=== PATIENT | male | born 1945 | race Caucasian/White ===

== ENCOUNTER 2022-03-12 11:48 | Emergency (ER) | payer MEDICARE, BC, SELFPAY ==
[2022-03-12 11:50] VITALS: BP 133/62; PULSE 66; RESP 16; TEMP 36.6; O2SAT 99; BMI 25.8
--- NOTE | 2022-03-12 12:28 | ED.GENADULT ---
HPI - General Adult General Date Seen: 03/12/22 Chief complaint: Skin/Abscess/Foreign Body Stated complaint: Swelling on head Time Seen by Provider: 03/12/22 11:50 Source: patient History of Present Illness HPI narrative: Patient is a 76-year-old male who presents for re-evaluation of cellulitis. He was seen a couple of days ago in urgent care having developed a red swollen area on his left upper forehead. He says it started as a relatively large painful red lump. It was not drained or anything at urgent care, he says that the lump just flattened out on its own. He was started on cefadroxil in Urgent Care and he has been taking that for the past couple of days. He says the area of redness on his forehead is improved although not completely gone. There is a little bit of scaliness and crusting over that area now that his is wondering if there is anything they should put on. He has not had any fevers. They came in today because when he woke up this morning he had swelling between his eyebrows and in his eyelid on the left. His left eye is also somewhat reddened. However, he does not have any pain in those areas and there is no redness of the eyelid or between his eyebrow. He says he does not really have any residual pain in the upper left scalp, it is mildly tender if he touches it but otherwise he does not have any pain. He does not have any specific history of MRSA. He has an appointment tomorrow morning to get his INR checked at clinic. He says he was told to follow up with his primary doctor this coming week, but they did not have any available appointments. Related Data Home Medications Medication Instructions Recorded Confirmed amlodipine 5 mg tablet 5 mg PO QDAY 03/09/22 03/12/22 atorvastatin 20 mg tablet 20 mg PO QPM 03/09/22 03/12/22 bupropion HCl 150 mg 24 hr tablet, 150 mg PO DAILY 03/09/22 03/12/22 extended release levothyroxine 25 mcg tablet 25 mcg PO QDAY 03/09/22 03/12/22 lisinopril 20 2 tab PO QDAY 03/09/22 03/12/22 mg-hydrochlorothiazide 12.5 mg tablet warfarin 4 mg tablet 4 mg PO 2XW 03/09/22 03/12/22 Previous Rx's Medication Instructions Recorded cefadroxil 500 mg capsule 500 mg PO BID 7 days #14 caps 03/09/22 mupirocin 2 % topical ointment 1 applic topical BID #15 grams 03/12/22 Allergies Allergy/AdvReac Type Severity Reaction Status Date / Time No Known Drug Allergies Allergy Verified 03/12/22 11:58 Review of Systems Status of ROS: Reports: 6 or more systems reviewed and unremarkable except as noted in History and below [facility] Social History Smoking Status: Former smoker Exam Narrative: Exam Narrative: Vital signs reviewed In general, an alert, well-appearing elderly male. Head: Normocephalic, atraumatic. On the left upper frontal scalp, there is the an oval shaped area of erythema without warmth. There is an area of slight scaling and crusting overlying this area. There is no drainage. There is no fluctuance over this area. It is nontender to palpation. Eyes: On the left there is some conjunctival edema and injection. Pupils are equal reactive. Extraocular movements are full. There is no ophthalmoplegia. There is edema of the left lid without erythema. ENT: There is a little bit of edema between the eyebrows without erythema or tenderness. No other facial edema or erythema. TMs are normal bilaterally. There is cerumen in the canal on the left but no impaction. Neck: Supple without adenopathy. Neurologic: He is alert, conversant, gait normal. Skin: Warm and dry. He has some scaling and erythema at the hairline consistent with seborrheic dermatitis. He has scaly patches on his hands which he says are chronic, they have never been fully diagnosed and he does not know whether they are seborrheic or related to psoriasis. Const: Vital Signs, click to edit/add: Vital Signs - 24 hr 03/12/22 11:50 Temperature 97.9 F Pulse Rate [Right Pulse Oximeter] 66 Respiratory Rate 16 Blood Pressure [Ri ght Upper Arm] 133/62 Pulse Oximetry 99 Oxygen Delivery Me thod Room Air Documenting provider has reviewed patient's vital signs: yes Course Course Hospital Course: It sounds as if originally he had an abscess on his forehead. This area is now flattened without any further fluctuance, it is not painful and really not significantly tender to palpation. He feels as if this is significantly improved. His primary concern was this new edema and his left eyelid and between his eyes, but to me this appears to be just some boggy edema, likely from gravity pulling the edema from his upper forehead down into his upper face. This does not appear to me to be a spreading cellulitis, he does not have any erythema or pain in these areas. We talked about MRSA and the possibility of this, but given that he is improving, I do not think he needs to be changed to a different antibiotic. I would suggest that we continue what he is on, and if he feels that he is worsening in any way, if he develops erythema or pain in these areas, he should be seen again right away. If he feels he is continuing to improve, I do not think he necessarily needs to follow up in clinic this week, but we discussed that if he has any concerns about his progress, that someone should take a look in the next day or 2, whether that is in clinic, or here in the ER if clinic does not have any availability. In terms of the little area of scaly/crustiness on the upper forehead, I will prescribe some mupirocin to use on that. Vital Signs Vital signs: Initial Vital Signs Temperature 97.9 F 03/12/22 11:50 Temperature Source Temporal Artery Scan 03/12/22 11:50 Pulse Rate 66 03/12/22 11:50 Respiratory Rate 16 03/12/22 11:50 Blood Pressure 133/62 03/12/22 11:50 Blood Pressure Mean 85 03/12/22 11:50 Blood Pressure Position Sitting 03/12/22 11:50 Pulse Oximetry 99 03/12/22 11:50 Oxygen Delivery Method 03/12/22 11:50 Vital Signs Temperature 97.9 F 03/12/22 11:50 Pulse Rate 66 03/12/22 11:50 Respiratory Rate 16 03/12/22 11:50 Blood Pressure 133/62 03/12/22 11:50 Pulse Oximetry 99 03/12/22 11:50 Oxygen Delivery Method 03/12/22 11:50 Temperature 97.9 F 03/12/22 11:50 Pulse Rate 66 03/12/22 11:50 Respiratory Rate 16 03/12/22 11:50 Blood Pressure 133/62 03/12/22 11:50 Pulse Oximetry 99 03/12/22 11:50 Oxygen Delivery Method 03/12/22 11:50 Discharge Plan Discharge Clinical Impression: Cellulitis Patient Disposition: Home, Self-Care Condition: Stable Instructions: Cellulitis (ED) Additional Instructions: Continue your antibiotic as prescribed. You can use the Bactroban on your forehead as discussed. If the swelling on your eyelid etc. changes and you note significant redness and or pain, you should be seen again right away. Otherwise, recheck with primary care clinic or ER if you have concerns about how you are doing in the next couple of days. If you feel that you are continuing to improve, you can follow-up for your INR tomorrow as planned. Prescriptions: New mupirocin 2 % ointment 1 applic topical BID Qty: 15 0RF No Action amlodipine 5 mg tablet 5 mg PO QDAY lisinopril-hydrochlorothiazide 20-12.5 mg tablet 2 tab PO QDAY Label Comments: TAKE 2 TABLETS BY MOUTH EVERY DAY levothyroxine 25 mcg tablet 25 mcg PO QDAY atorvastatin 20 mg tablet 20 mg PO QPM warfarin 4 mg tablet 4 mg PO 2XW Label Comments: 8mg 5 days a week bupropion HCl 150 mg tablet extended release 24 hr 150 mg PO DAILY Label Comments: TAKE 1 TABLET BY MOUTH EVERY DAY cefadroxil 500 mg capsule 500 mg PO BID 7 Days Qty: 14 0RF Follow Up/Referrals: Calixto Tsang MD [Primary Care Provider] - Stand Alone Forms: [employer] Info Instructions
== END 2022-03-12 12:52 | disposition home or self-care (01) ==
LOC: ED 12:49
PROVIDERS: Emergency Provider Emergency Medicine; PCP Family Medicine
DX: L03.811 Cellulitis of head [any part, except face] (principal)
CPT/HCPCS: 99283

== ENCOUNTER 2022-03-29 16:56 | Emergency (ER) | payer MEDICARE, BC, SELFPAY ==
[2022-03-29 17:47] VITALS: BP 150/75; PULSE 71; RESP 18; TEMP 35.9; O2SAT 97; BMI 26.6
[2022-03-29 18:05] VITALS: PULSE 79; O2SAT 93
[2022-03-29 18:30] VITALS: PULSE 76; O2SAT 89
[2022-03-29 18:33] VITALS: O2SAT 91
--- NOTE | 2022-03-29 18:36 | ED.GENADULT ---
HPI - General Adult General Chief complaint: Nausea/Vomiting Stated complaint: Vomiting Time Seen by Provider: 03/29/22 17:56 History of Present Illness HPI narrative: 76-year-old man presenting to the emergency department with his spouse with concern of repeated vomiting and weakness. History of atrial fibrillation anticoagulated with Coumadin. He notes a propensity to getting rather bloated if he eats too much and had a good size brunch today but did not feel it was excessive. After eating had gone to sit down and maybe read and with further questioning it reveals that he had looked down looked up and then everything was spinning ?whirling?. Subsequently started vomiting repeatedly. Became weak and was unable to stand. No diarrhea. No abdominal pain beyond sensation of fullness. No headache. I note dysconjugate gaze on exam apparently this is from Graves disease and he does generally have double vision. Otherwise is getting over a recent diagnosis of shingles. Tried 1 of 's Zofran but did seem to help. No fever. No cough or cold symptoms. Was apparently recently diagnosed with shingles involving the left head and face. Related Data Home Medications Medication Instructions Recorded Confirmed amlodipine 5 mg tablet 5 mg PO QDAY 03/09/22 03/12/22 atorvastatin 20 mg tablet 20 mg PO QPM 03/09/22 03/12/22 bupropion HCl 150 mg 24 hr tablet, 150 mg PO DAILY 03/09/22 03/12/22 extended release levothyroxine 25 mcg tablet 25 mcg PO QDAY 03/09/22 03/12/22 lisinopril 20 2 tab PO QDAY 03/09/22 03/12/22 mg-hydrochlorothiazide 12.5 mg tablet warfarin 4 mg tablet 4 mg PO 2XW 03/09/22 03/12/22 Previous Rx's Medication Instructions Recorded mupirocin 2 % topical ointment 1 applic topical BID #15 grams 03/12/22 Allergies Allergy/AdvReac Type Severity Reaction Status Date / Time No Known Drug Allergies Allergy Verified 03/12/22 11:58 Review of Systems Status of ROS: Reports: 10 or more systems reviewed and unremarkable except as noted in History and below PFSH PFS Social History Smoking Status: Former smoker Non-prescribed substance use: denies use Exam Narrative: Exam Narrative: Is pleasant. Speaking easily. Breathing easily. Head looks to be atraumatic. Does have some subtle erythematous spots with residual between the brows and then erythema in the corners of the mouth I would consider consistent with seborrhea. Cranial nerves 2-12 are intact though there is some dysconjugate gaze with the left eye little elevated turned medially when apparently is looking straight ahead. Extraocular movements otherwise are intact and full. He mild proptosis though with some drooping of the left lid a little bit. No nystagmus. Mild subjective dizziness with rotational head movement at this time. Cardiovascular regular rate but appears to be in an irregular rhythm. (also incidentally notes a history of resolved aortic aneurysm ?grew into it?) Lungs are clear Abdomen is soft and nontender. Moving all extremities without difficulty. Well-perfused. Const: Vital Signs, click to edit/add: Vital Signs - 24 hr 03/29/22 17:47 03/29/22 18:33 03/29/22 18:05 Temperature 96.7 F L Pulse Rate [Right Pulse Oximeter] 71 79 Respiratory Rate 18 Blood Pressure [Ri ght Upper Arm] 150/75 H Pulse Oximetry 97 91 93 Oxygen Delivery Me thod Room Air Room Air 03/29/22 18:30 03/29/22 19:00 03/29/22 20:00 Temperature Pulse Rate [Right Pulse Oximeter] 76 82 79 Respiratory Rate Blood Pressure [Ri ght Upper Arm] 116/63 Pulse Oximetry 89 89 93 Oxygen Delivery Me thod Room Air Room Air Room Air Documenting provider has reviewed patient's vital signs: yes Course Course Hospital Course: Labs are drawn. Initiated on IV fluids. Ordered for Valium and Zofran as well. Reevaluation(s) Reevaluation #1: Markedly improved. Says he feels ?pretty good?. Apparently up without notable difficulty to the bathroom. [place] a little weak little tired but no more dizzy. Feels he can return home. Time: 20:30 Vital Signs Vital signs: Initial Vital Signs Temperature 96.7 F L 03/29/22 17:47 Temperature Source Temporal Artery Scan 03/29/22 17:47 Pulse Rate 71 03/29/22 17:47 Respiratory Rate 18 03/29/22 17:47 Blood Pressure 150/75 H 03/29/22 17:47 Blood Pressure Mean 100 03/29/22 17:47 Blood Pressure Position Sitting 03/29/22 17:47 Pulse Oximetry 97 03/29/22 17:47 Oxygen Delivery Method 03/29/22 17:47 Vital Signs Temperature 96.7 F L 03/29/22 17:47 Pulse Rate 71 03/29/22 17:47 Respiratory Rate 18 03/29/22 17:47 Blood Pressure 150/75 H 03/29/22 17:47 Pulse Oximetry 97 03/29/22 17:47 Oxygen Delivery Method 03/29/22 17:47 Temperature 96.7 F L 03/29/22 17:47 Pulse Rate 79 03/29/22 20:00 Respiratory Rate 18 03/29/22 17:47 Blood Pressure 116/63 03/29/22 20:00 Pulse Oximetry 93 03/29/22 20:00 Oxygen Delivery Method 03/29/22 20:00 Medical Decision Making MDM Narrative Medical decision making narrative: Suspect peripheral vertiginous symptoms here. Careful questioning revealed that dizziness was brought on by particular movement and preceded the vomiting. Lab Data Lab results reviewed: Yes I reviewed the patient's lab results Labs: Lab Results 03/29/22 03/29/22 03/29/22 Range/Units 18:20 18:20 18:20 WBC 7.95 (4.50-11.00) K/uL RBC 4.85 (4.30-5.90) m/uL Hgb 14.4 (13.5-17.5) gm/dL Hct 44.3 (37.0-53.0) % MCV 91 (80-100) fL MCH 30 (26-34) pg MCHC 33 (32-36) gm/dL RDW Coeff of [place]eland 13.0 (11.5-15.5) % Plt Count 292 (140-440) K/uL Neut % (Auto) 79.0 H (42.0-72.0) % Lymph % (Auto) 11.7 L (20-44) % [place] % (Auto) 8.2 (0.0-11.0) % Eos % (Auto) 0.6 (0.0-7.0) % Baso % (Auto) 0.4 (0.0-3.0) % Neut # (Auto) 6.30 (1.7-7.0) K/uL Lymph # (Auto) 0.90 (0.90-2.90) K/uL [place] # (Auto) 0.70 (0.00-0.90) K/UL Eos # (Auto) 0.05 (0.00-0.50) K/uL Baso # (Auto) 0.03 (0.00-0.30) K/uL Abs Immat Gran (auto) 0.01 (0.00-0.30) K/uL Imm/Tot Granulo (auto) Not Reportable INR 1.65 H (0.91-1.10) Sodium 138 (135-149) mmol/L Potassium 4.2 (3.6-5.1) mmol/L Chloride 100 (96-114) mmol/L Carbon Dioxide 27 (20-32) mmol/L BUN 23 (7-30) mg/dL Creatinine 0.8 (0.5-1.5) mg/dL Estimated Creat Clear 60.88 Estimated GFR 91 ml/min Glucose 115 (60-115) mg/dL Calcium 9.3 (8.4-10.6) mg/dL Magnesium 2.3 (1.5-2.6) mg/dL Total Bilirubin (0.1-1.5) mg/dL Direct Bilirubin (0.0-0.5) mg/dL AST (12-35) U/L ALT (4-50) U/L Alkaline Phosphatase (40-150) U/L Troponin I (0.01-0.04) ng/mL C-Reactive Protein 0.7 (0.5-1.0) mg/dL NT-Pro-B Natriuret Pep 112 (0-450) PG/mL Total Protein (6.0-8.3) g/dL Albumin (3.3-5.0) g/dL 03/29/22 Range/Units 18:20 WBC (4.50-11.00) K/uL RBC (4.30-5.90) m/uL Hgb (13.5-17.5) gm/dL Hct (37.0-53.0) % MCV (80-100) fL MCH (26-34) pg MCHC (32-36) gm/dL RDW Coeff of [place] (11.5-15.5) % Plt Count (140-440) K/uL Neut % (Auto) (42.0-72.0) % Lymph % (Auto) (20-44) % [place] % (Auto) (0.0-11.0) % Eos % (Auto) (0.0-7.0) % Baso % (Auto) (0.0-3.0) % Neut # (Auto) (1.7-7.0) K/uL Lymph # (Auto) (0.90-2.90) K/uL [place] # (Auto) (0.00-0.90) K/UL Eos # (Auto) (0.00-0.50) K/uL Baso # (Auto) (0.00-0.30) K/uL Abs Immat Gran (auto) (0.00-0.30) K/uL Imm/Tot Granulo (auto) INR (0.91-1.10) Sodium (135-149) mmol/L Potassium (3.6-5.1) mmol/L Chloride (96-114) mmol/L Carbon Dioxide (20-32) mmol/L BUN (7-30) mg/dL Creatinine (0.5-1.5) mg/dL Estimated Creat Clear Estimated GFR ml/min Glucose (60-115) mg/dL Calcium (8.4-10.6) mg/dL Magnesium (1.5-2.6) mg/dL Total Bilirubin 0.9 (0.1-1.5) mg/dL Direct Bilirubin 0.1 (0.0-0.5) mg/dL AST 36 H (12-35) U/L ALT 24 (4-50) U/L Alkaline Phosphatase 80 (40-150) U/L Troponin I < 0.01 L (0.01-0.04) ng/mL C-Reactive Protein (0.5-1.0) mg/dL NT-Pro-B Natriuret Pep (0-450) PG/mL Total Protein 7.4 (6.0-8.3) g/dL Albumin 4.7 (3.3-5.0) g/dL ECG Data Attestation: I personally reviewed and interpreted this ECG as follows: (Looks to be in a sinus rhythm. Numerous PACs. Right bundle branch block. Rate of 79) Discharge Plan Discharge Clinical Impression: Benign paroxysmal positional vertigo Patient Disposition: Home w/ Parent or Adult Condition: Improved Additional Instructions: I am tempted to say leave well enough alone in this case. Stay well hydrated. Move slowly over the next couple of days. Take good care in transitions. Return as needed. Antivert also known as meclizine is available [id number] if you have some mild dizziness yet. Prescriptions: No Action amlodipine 5 mg tablet 5 mg PO QDAY lisinopril-hydrochlorothiazide 20-12.5 mg tablet 2 tab PO QDAY Label Comments: TAKE 2 TABLETS BY MOUTH EVERY DAY levothyroxine 25 mcg tablet 25 mcg PO QDAY atorvastatin 20 mg tablet 20 mg PO QPM warfarin 4 mg tablet 4 mg PO 2XW Label Comments: 8mg 5 days a week bupropion HCl 150 mg tablet extended release 24 hr 150 mg PO DAILY Label Comments: TAKE 1 TABLET BY MOUTH EVERY DAY mupirocin 2 % ointment 1 applic topical BID Qty: 15 0RF Follow Up/Referrals: Calixto Tsang MD [Primary Care Provider] - Stand Alone Forms: [employer] Info Instructions
[2022-03-29] MEDS: ONDANSETRON 2 MG/ML inj 4 MG IVP (18:51)
[2022-03-29] MEDS: diazePAM 5 MG/ML inj IV (18:51)
[2022-03-29 18:52] LABS: Albumin* 4.7 g/dL (3.3-5.0)
[2022-03-29] MEDS: 0.9 % SODIUM CHLORIDE 1000 ml 1,000 ML IV (18:52)
[2022-03-29 18:53] LABS: Basophils Absolute Auto 0.03 K/uL (0.00-0.30); Basophils Percent Auto 0.4 % (0.0-3.0); Chloride* 100 mmol/L (96-114); Eosinophils Absolute Auto 0.05 K/uL (0.00-0.50); Eosinophils Percent Auto 0.6 % (0.0-7.0); Hematocrit 44.3 % (37.0-53.0); Hemoglobin* 14.4 gm/dL (13.5-17.5); Immature Granulocytes Abs Auto 0.01 K/uL (0.00-0.30); Lymphocytes Percent Auto 11.7 % (20-44); Mean Corpuscular HGB Conc 33 gm/dL (32-36); Mean Corpuscular Hemoglobin 30 pg (26-34); Mean Corpuscular Volume 91 fL (80-100); Monocytes Percent Auto 8.2 % (0.0-11.0); Platelet Count* 292 K/uL (140-440); Potassium* 4.2 mmol/L (3.6-5.1); Red Blood Count 4.85 m/uL (4.30-5.90); Sodium* 138 mmol/L (135-149); White Blood Count* 7.95 K/uL (4.50-11.00)
[2022-03-29 18:55] LABS: Aspartate Amino Transferase* 36 U/L (12-35); Bilirubin Direct* 0.1 mg/dL (0.0-0.5); Bilirubin Total* 0.9 mg/dL (0.1-1.5); Total Protein* 7.4 g/dL (6.0-8.3)
[2022-03-29 18:56] LABS: Alanine Aminotransferase* 24 U/L (4-50); Alkaline Phosphatase* 80 U/L (40-150); Creatinine* 0.8 mg/dL (0.5-1.5); Est. Creatinine Clearance* 60.88; Estimated Glomerular Filt Rate 91 ml/min
[2022-03-29 18:57] LABS: Blood Urea Nitrogen* 23 mg/dL (7-30); Calcium* 9.3 mg/dL (8.4-10.6); Carbon Dioxide* 27 mmol/L (20-32); Glucose* 115 mg/dL (60-115); INR 1.65 (0.91-1.10); Magnesium* 2.3 mg/dL (1.5-2.6); Prothrombin Time 20.4 Seconds; Slide Review Reflex No
[2022-03-29 19:00] VITALS: PULSE 82; O2SAT 89
[2022-03-29 19:00] LABS: C Reactive Protein* 0.7 mg/dL (0.5-1.0)
[2022-03-29 19:05] LABS: NT Pro B Type NatriureticPept* 112 PG/mL (0-450)
[2022-03-29 19:08] LABS: Troponin I* < 0.01 ng/mL (0.01-0.04)
--- NOTE | 2022-03-29 19:11 | ED.NURSE ---
Pt states vertigo sensation is almost entirely resolved after med administration. MD notified.
[2022-03-29 20:00] VITALS: BP 116/63; PULSE 79; O2SAT 93
== END 2022-03-29 20:40 | disposition home or self-care (01) ==
PROVIDERS: Emergency Provider Family Medicine; PCP Family Medicine
DX: H81.10 Benign paroxysmal vertigo, unspecified ear (principal); I48.91 Unspecified atrial fibrillation; E05.00 Thyrotoxicosis with diffuse goiter without thyrotoxic crisis or storm; Z79.01 Long term (current) use of anticoagulants; Z79.899 Other long term (current) drug therapy; Z87.891 Personal history of nicotine dependence
CPT/HCPCS: 36415; 80048; 80076; 83735; 83880; 84484; 85025; 85610; 86140; 93005; 94761; 96361; 96374; 96375; 99284; J2405; J3360; J7030

== ENCOUNTER 2023-06-20 11:13 | Emergency (ER) | payer MEDICARE, BC, SELFPAY ==
[2023-06-20 11:20] VITALS: BP 161/75; PULSE 70; RESP 16; TEMP 36.4; O2SAT 98; BMI 25.8
--- NOTE | 2023-06-20 11:21 | CRLHL7_ITS ---
For Patients: As a result of the Century Cures Act, medical imaging exams and procedure reports are released immediately into your electronic medical record. You may view this report before your referring provider. If you have questions, please contact your health care provider. Indication: Fall on Coumadin Technique: Volumetric multidetector CT images of the head were obtained without the administration of low osmolar intravenous contrast. Comparison: None available Findings: There is no intra-axial or extra-axial fluid collection. There is no mass effect or midline shift. There is age-related cortical atrophy with mild sulcal widening and ex vacuo dilatation of the lateral ventricles. There are chronic small vessel disease changes in the subcortical and periventricular white matter without lost clifford-white differentiation. The orbits and their contents are grossly within normal limits. The bony calvarium is grossly intact. The paranasal sinuses are clear. The mastoid air cells are well aerated. Impression: 1. Age-related changes of the brain without acute intracranial abnormality. Please note that all CT scans at this facility use dose modulation, iterative reconstruction, and/or weight-based dosing when appropriate to reduce radiation dose to as low as reasonably achievable. Dictated by Joe Prater MD @ 06/20/2023 11:41:27 AM (Electronically Signed)
--- NOTE | 2023-06-20 11:29 | ED.GENADULT ---
HPI - General Adult General Chief complaint: Head Injury/Pain Stated complaint: Fell- hit head Time Seen by Provider: 06/20/23 11:20 History of Present Illness HPI narrative: Patient is a 77 year white male who fell on the ice and landed on the back of his buttock area and then hit the back of his head. He has got a slight abrasion on the back of his occipital parietal area. The center. He had no loss conscious, no neck pain, no neurologic complaints in his arms or legs. He did not feel nauseated. He presents to the ED as he is on Coumadin for AFib and was concerned that he could have a bleeding issue. He ambulates into the ER without difficulty. He has no arm or leg or chest or back symptoms. Related Data Home Medications Medication Instructions Recorded Confirmed amlodipine 5 mg tablet 5 mg PO QDAY 03/09/22 03/12/22 atorvastatin 20 mg tablet 20 mg PO QPM 03/09/22 03/12/22 bupropion HCl 150 mg 24 hr tablet, 150 mg PO DAILY 03/09/22 03/12/22 extended release levothyroxine 25 mcg tablet 25 mcg PO QDAY 03/09/22 03/12/22 lisinopril 20 2 tab PO QDAY 03/09/22 03/12/22 mg-hydrochlorothiazide 12.5 mg tablet warfarin 4 mg tablet 4 mg PO 2XW 03/09/22 03/12/22 Previous Rx's Medication Instructions Recorded mupirocin 2 % topical ointment 1 applic topical BID #15 grams 03/12/22 Allergies Allergy/AdvReac Type Severity Reaction Status Date / Time No Known Drug Allergies Allergy Verified 03/12/22 11:58 Review of Systems Status of ROS: Reports: 6 or more systems reviewed and unremarkable except as noted in History and below [facility] Social History Smoking Status: Former smoker Non-prescribed substance use: denies use Exam Narrative: Exam Narrative: Objective vital signs show slightly elevated blood pressure afebrile O2 sat excellent He is alert or x3 very pleasant man He has got an abrasion over the superior aspect of his scalp over the upper access PET. No obvious laceration just simply is a good abrasion. This will be cleansed and covered Rest of HEENT unremarkable neck nontender he reports his neck is always stiff but he has no midline tenderness he has normal range of motion. No neurologic complaints with movement of his neck. Normal strength in his arms and legs he is able to stand without difficulty. back examination shows no significant tenderness he has complained of some just below the belt line in the mid low back tenderness but there is no palpable step-off, no bruising or redness. He has normal strength in his legs as mention. Const: Vital Signs, click to edit/add: Vital Signs - 24 hr 06/20/23 11:20 Temperature 97.5 F L Pulse Rate [Pulse Oximeter] 70 Respiratory Rate 16 Blood Pressure [Ri t Upper Arm] 161/75 H Pulse Oximetry 98 Oxygen Delivery Me thod Room Air Course Vital Signs Vital signs: Initial Vital Signs Temperature 97.5 F L 06/20/23 11:20 Temperature Source Temporal Artery Scan 06/20/23 11:20 Pulse Rate 70 06/20/23 11:20 Pulse Rhythm Regular 06/20/23 11:20 Respiratory Rate 16 06/20/23 11:20 Blood Pressure 161/75 H 06/20/23 11:20 Blood Pressure Mean 103 06/20/23 11:20 Blood Pressure Position Sitting 06/20/23 11:20 Pulse Oximetry 98 06/20/23 11:20 Oxygen Delivery Method Room Air 06/20/23 11:20 Vital Signs Temperature 97.5 F L 06/20/23 11:20 Pulse Rate 70 06/20/23 11:20 Respiratory Rate 16 06/20/23 11:20 Blood Pressure 161/75 H 06/20/23 11:20 Pulse Oximetry 98 06/20/23 11:20 Oxygen Delivery Method Room Air 06/20/23 11:20 Temperature 97.5 F L 06/20/23 11:20 Pulse Rate 70 06/20/23 11:20 Respiratory Rate 16 06/20/23 11:20 Blood Pressure 161/75 H 06/20/23 11:20 Pulse Oximetry 98 06/20/23 11:20 Oxygen Delivery Method Room Air 06/20/23 11:20 Medications Administered Medications: Discontinued Medications Generic Name Dose Route Start Last Admin Trade Name Freq PRN Reason Stop Dose Admin Diphtheria/Tetanus/Acell Pertussis 0.5 ml 06/20/23 11:33 06/20/23 11:52 Tetanus/Diphth/Pertussis 0.5 Ml Syringe IM 06/20/23 11:34 0.5 ml .ONCE ONE Administration Medical Decision Making MDM Narrative Medical decision making narrative: [age] year white male on Coumadin for AFib also has hypertension high cholesterol, presents with a fall, on his low back and back of his head. He is moving well as low back has some minimal tenderness but I do not think requires imaging at this time given he is moving well and has no specific point tenderness. He also has an abrasion on the top of his head but I do think given that he fell he should have a CT of his head given he is on blood thinner his age. If his CT scan is negative I think he can go home rest light activity continue his same medications, his last INR was therapeutic. Will check it again today. Will also check his tetanus status. Lab Data Labs: Lab Results 06/20/23 Range/Units 11:43 INR 2.76 H (0.91-1.10) Discharge Plan Discharge Clinical Impression: Closed head injury Patient Disposition: Home w/ Parent or Adult Condition: Stable Additional Instructions: Light activity, Tylenol as needed, recheck her Coumadin level as planned. Return to ED problems concerns specifically vomiting, increasing headache, confusion or disorientation. Also would return for significant dizziness. Recommend he recheck with your regular doctor within the next week. You may cover the wound on your scalp with bacitracin and a bandage Activity Level: Light activity Discharge Diet: Regular Prescriptions: No Action amlodipine 5 mg tablet 5 mg PO QDAY lisinopril-hydrochlorothiazide 20-12.5 mg tablet 2 tab PO QDAY Patient Comments: TAKE 2 TABLETS BY MOUTH EVERY DAY levothyroxine 25 mcg tablet 25 mcg PO QDAY atorvastatin 20 mg tablet 20 mg PO QPM warfarin 4 mg tablet 4 mg PO 2XW Patient Comments: 8mg 5 days a week bupropion HCl 150 mg tablet extended release 24 hr 150 mg PO DAILY Patient Comments: TAKE 1 TABLET BY MOUTH EVERY DAY mupirocin 2 % ointment 1 applic topical BID Qty: 15 0RF Follow Up/Referrals: Calixto Tsang MD [Primary Care Provider] - Stand Alone Forms: [facility] Info Instructions
--- NOTE | 2023-06-20 11:36 | ED.NURSE ---
Patient's last TDap 05/13/2013 according to [facility].
[2023-06-20] MEDS: TETANUS/DIPHTH/PERTUSSIS 0.5 ML SYRINGE IM (11:52)
--- NOTE | 2023-06-20 11:54 | ED.NURSE ---
Patient's abrasion to back of head cleansed, bacitracin applied, telfa secured with paper tape for coverage of area.
[2023-06-20 12:04] LABS: INR 2.76 (0.91-1.10); Prothrombin Time 31.3 Seconds
== END 2023-06-20 12:32 | disposition home or self-care (01) ==
LOC: ED 12:01
PROVIDERS: Emergency Provider Family Medicine; PCP Family Medicine
DX: S09.90XA Unspecified injury of head, initial encounter (principal); W00.0XXA Fall on same level due to ice and snow, initial encounter
CPT/HCPCS: 36415; 70450; 85610; 90471; 90715; 99283; 99284

== ENCOUNTER 2024-01-17 13:45 | Outpatient (RCR) | payer MEDICARE, BC, SELFPAY ==
--- NOTE | 2023-12-12 17:25 | PT.OPEX ---
PT [facility] Eval PT [facility] Outpatient Eval Start: 12/12/23 11:57 Freq: Status: Active Protocol: Document 12/12/23 11:57 [place] (Rec: 12/12/23 17:25 [facility] [id number]) E-signed By Radha Bacon PT Physical Therapy Outpatient Evaluation Insurance Information Recert Due Date 12/12/23 Insurance Name Medicare B Medical Diagnosis MECHANICAL LOW BACK PAIN M54.9 Treating Diagnosis BACK PAIN Referring MD DR. COOPER Subjective Subjective FELIPE REPORTS THAT SUNDAY, WHEN HE TYLER FROM BED, WITHIN ABOUT 2-3 STEPS HE FELT A SIGNIFICANT AMOUNT OF PAIN ABOUT THE RIGHT POSTERIOR HIP. HE STATES, I'VE HAD KIM FALLS OVER THE YEARS LANDING ON MY BACKSIDE BUT I NEVER HAD THIS TIP OF PAIN. HE FURTHER REPORTS RIGHT>LEFT ANTERIOR TIB FATIGUE/DISCOMFORT FOLLOWING THE INITIATION OF THE RIGHT POSTERIOR HIP PAIN. 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 HE HAS GIVEN UP GOLF A WHILE BACK D/T HIS BACK AND IS IT IS NOW AFFECTING EVERYDAY MOBILITY. HIS PATIENT CENTERED GOAL IS TO MANAGE HIS SYMPTOMS AND BE ABLE TO WALK COMMUNITY DISTANCES W/HIS W/O PAIN. [age] year white male on Coumadin for AFib also has hypertension high cholesterol, presents with a fall, on his low back and back of his head. 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 Precautions Treatment Precautions/Contraindications ANTICOAGULATION PRECAUTIONS, AFIB, HTN, HLD, HYPOTHYROIDISM , [place] W/HEARING AIDES Therapy Limitations/Systems Review Hearing Objective Other/Pertinent Objective Posture Assessment: SLIGHT FWD TRUNK POSTURING, ABSENT LORDOITC CURAVATURE LUMBAR ROM Flexion: repeated flexion: UNREMARKABLE Extension: ABSENT LORDOTIC MVMT repeated ext: UNREMARKABLE Right Sidebend: Left Sidebend: LE MMT Hip flexion: R /5 L /5 Hip Extension: R /5 L /5 Hip abduction: R /5 L /5 knee extension: R /5 L /5 Knee Flexion: R /5 L /5 Dorsiflexion/heel walk: R /5 L /5 Plantarflexion/toe walk:R /5 L /5 Great Toe Extension: R /5 L /5 JOINT MOBILITY/PALPATION SPECIAL TESTS Straight leg raise: Crossed straight leg raise: Slump test: Quadrant test: SI/HIPI tests FRANCIE DIAZ [place] Test: Standing forward bend Test: Gapping and Compression test: TX: Assessment Assessment/Impression PATIENT IS A [address] COOPER TO EVAL AND TX MECHANICAL LOW BACK PAIN. HE REPORTS WAKING LAST SUNDAY TO RIGHT HIP/SI PAIN WITHIN SEVERAL STEPS OF WALKING. CONCURRENTLY HE C/O RIGHT>LEFT TIBIALIS ANTERIOR PAIN. HE DEMONSTRATES POOR FLEXIBILITY NOTING BILATERAL HIP ROTATION STIFFNESS R>LEFT, HIP FLEX STIFFNESS R>L AND POSTERIOR PELVIC TILT ELIMINATING LUMBAR LORDOSIS. HE DEMONSTRATES MODERATE FACET HYPOMOBILITY WELL SEGMENTALLY AND TTP RIGHT>LEFT SIJ, LEFT>RIGHT L4, L5 FACET. HE HAS BEEN TOLD IN THE PAST THAT HE HAS STENOSIS AND HAS LOST 2 IN HEIGHT. HE HAS NORMAL REFLEXES WELL 5/5 STRENGTH BLE BUT 4 /5 GLUT STRENGTH. HE WOULD BENEFIT FROM SKILLED PHYSICAL THERAPY TO ADDRESS LUMBOPELVIC /HIP FLEXIBILITY, SEGMENTAL MOBILITY, CORE STRENGTHENING, AND POSTURAL / BACK CARE EDUCATION. PATIENT VERBALIZED UNDERSTANDING OF ALL SKILLED INSTRUCTION AND AGREEABLE TO POC AND FREQ. Primary Functional Limitations STDG>3-4 MIN HOUSEHOLD AMB W/O PAIN COMMUNITY AMB TRANSITIONAL MVMTS Plan of Care Rehabilitation Potential Good Physical Therapy Goals STG (4-6 WEEKS): 1. PATIENT WILL REPORT PAIN </ 3/10 DURING DAILY ACTIVITIES AND WITH DAILY PARTICIPATION WITH HIS HEP 2. PATIENT WILL REPORT THE ABILITY TO STAND >10 MIN TO ENABLE COOKING, GROOMING, AND OTHER IADL'S 3. PATIENT WILL VERBALIZE A GOOD UNDERSTANDING OF BODY MECHANICS DURING HIS DAILY ACTIVITIES ALONG WITH PROPER LIFTING TECHNIQUES FOR GOOD BACK CARE AND WITH SYMPTOM MGMT. LTG (8 WEEKS): 1. PATIENT WILL IMPROVE NOT ONLY FLEXIBILITY BUT BOTH CORE STRENGTH AND STABILITY TO IMPROVE POSTURING DURING DAILY ACTIVITIES INCLUDING IADL'S AND PEER CENTERED ACTIVITIES. 2. PATIENT WILL VERBALIZE GOOD UNDERSTANDING OF CORE STABILITY TO MAINTAIN AND FURTHER PROGRESS HIS FUNCTIONAL MOBILITY AND TOLERANCE TO PROLONGED POSITIONING. 3. PATIENT WILL DEMONSTRATE COMPLETE INDEPENDENCE AND THE ABILITY TO PROGRESS HIS HEP FOR MAINTENANCE AND CONTINUED IMPROVEMENT OF HIS CORE / BLE STRENGTH AND STABILITY. Coordination/Communication With Referral Source Treatment Plan/Direct Interventions Electrical Stimulation,Gait Training,Ice/Cold/ Vasopneumatic,Joint Mobilization,Manual Therapy, Neuromuscular Re-ed,Self-Care/ Home Management,Therapeutic Activities,Therapeutic Exercises Frequency/Duration 1X Patient Will Be Discharged From Therapy Completion of LTG(s), Independent w/HEP Evaluation Billing Untimed Code Treatment Minutes 20 PT Eval No Charge No Complexity Moderate Certification Information Initial Certification Date 12/12/23 Ending Certification Date 03/10/24 Provider Signature Required Yes Provider Signature Shows Agreement With POC & Medical Necessity Physician NPI Number Write NPI# Here Physician Comment/Change : Physician Signature & Date Requested Please Sign/Date Here
== END 2024-02-06 09:18 | disposition home or self-care (01) ==
PROVIDERS: PCP Family Medicine; Visit Provider Family Medicine
DX: M54.9 Dorsalgia, unspecified (principal); Z51.89 Encounter for other specified aftercare
CPT/HCPCS: 97110; 97140; 97162

== ENCOUNTER 2024-02-17 17:29 | Emergency (ER) | payer MEDICARE, BC, SELFPAY ==
[2024-02-17] VITALS (10 sets, daily range): BP systolic 120–138; BP diastolic 61–88; PULSE 76–82; RESP 18; TEMP 37.5–38.3; O2SAT 93–95; BMI 25.1
--- NOTE | 2024-02-17 17:46 | ED.GENADULT ---
HPI - General Adult General Chief complaint: Fever Stated complaint: vomiting, fever Time Seen by Provider: 02/17/24 17:46 History of Present Illness HPI narrative: coughing that started yesterday. now running fevers . 78 year old man presenting to the emergency department concern of cough and fever. Did start yesterday. Has measured a fever then today. Temperature of 101? on arrival here. No chest pain. Not really short of breath. No rashes. No vomiting or diarrhea. Some aches. Related Data Home Medications ?Medication ?Instructions ?Recorded ?Confirmed amlodipine 5 mg tablet 5 mg PO QDAY 03/09/22 02/17/24 atorvastatin 20 mg tablet 20 mg PO QPM 03/09/22 02/17/24 bupropion HCl 150 mg 24 hr tablet, 150 mg PO DAILY 03/09/22 02/17/24 extended release levothyroxine 25 mcg tablet 25 mcg PO QDAY 03/09/22 02/17/24 lisinopril 20 2 tab PO QDAY 03/09/22 02/17/24 mg-hydrochlorothiazide 12.5 mg tablet warfarin 4 mg tablet 4 mg PO 2XW 03/09/22 02/17/24 Previous Rx's ?Medication ?Instructions ?Recorded mupirocin 2 % topical ointment 1 applic topical BID #15 grams 03/12/22 nirmatrelvir 300 mg (150 mg See Rx Instructions PO .COMPLEX #6 02/17/24 x2)-ritonavir 100 mg tablet,dose tabs pack (Paxlovid) Allergies Allergy/AdvReac Type Severity Reaction Status Date / Time No Known Drug Allergies Allergy Verified 03/12/22 11:58 Review of Systems Status of ROS: Reports: 6 or more systems reviewed and unremarkable except as noted in History and below [facility] Social History Smoking Status: Former smoker Do you use any of these nicotine containing products: None Second hand tobacco smoke exposure: No How often do you have a drink containing alcohol: monthly or less How often do you have six or more drinks on one occasion: Never AUDIT-C Alcohol total score: 1 Non-prescribed substance use: denies use service: No Exam Narrative: Exam Narrative: Pleasant. NAD. Seems a little uncomfortable. Distracted. Spouse answers many questions. He defers. Lungs appear clear other than some trace clearing basilar crepitus. Equal expansion the chest. Oropharynx is unremarkable other than a little sticky. Heart actually appears to be in a regular rhythm with some ectopic beats. Abdomen is soft nontender. Extremities are well perfused. No edema. Skin is rather warm. Dry. Const: Vital Signs, click to edit/add: Vital Signs - 24 hr 02/17/24 17:36 Temperature 101.0 F H Pulse Rate [Right Pulse Oximeter] 82 Respiratory Rate 18 Blood Pressure [Ri ght Upper Arm] 134/61 Pulse Oximetry 94 Oxygen Delivery Me thod Room Air Documenting provider has reviewed patient's vital signs: yes Course Vital Signs Vital signs: Initial Vital Signs Temperature 101.0 F H 02/17/24 17:36 Temperature Source Temporal Artery Scan 02/17/24 17:36 Pulse Rate 82 02/17/24 17:36 Respiratory Rate 18 02/17/24 17:36 Blood Pressure 134/61 02/17/24 17:36 Blood Pressure Mean 85 02/17/24 17:36 Blood Pressure Position Sitting 02/17/24 17:36 Pulse Oximetry 94 02/17/24 17:36 Oxygen Delivery Method Room Air 02/17/24 17:36 Vital Signs Temperature 101.0 F H 02/17/24 17:36 Pulse Rate 82 02/17/24 17:36 Respiratory Rate 18 02/17/24 17:36 Blood Pressure 134/61 02/17/24 17:36 Pulse Oximetry 94 02/17/24 17:36 Oxygen Delivery Method Room Air 02/17/24 17:36 Temperature 99.5 F 02/17/24 19:36 Pulse Rate 82 02/17/24 19:32 Respiratory Rate 18 02/17/24 17:36 Blood Pressure 127/88 02/17/24 19:31 Pulse Oximetry 94 02/17/24 19:32 Oxygen Delivery Method Room Air 02/17/24 17:36 Medications Administered Medications: Discontinued Medications Generic Name Dose Route Start Last Admin Trade Name Freq PRN Reason Stop Dose Admin Acetaminophen 650 mg 02/17/24 18:10 02/17/24 18:50 Acetaminophen 325 Mg Tablet PO 02/17/24 18:11 650 mg ONCE ONE Administration Sodium Chloride 1,000 mls @ 1,000 mls/hr 02/17/24 17:57 02/17/24 18:40 0.9 % Sodium Chloride 1000 Ml IV 02/17/24 18:56 1,000 mls/hr .Q1H ONE Administration Medical Decision Making MDM Narrative Medical decision making narrative: Differential includes pneumonia, COVID in particular considering community prevalence, nonspecific URI, secondary urinary tract infection. Will look for correlating and red flags in labs. I think would benefit from IV hydration Chest x-ray reviewed by me does not show clear infiltrate. Basilar atelectasis? Radiology over-read below INDICATION: Cough and fever. COMPARISON: 05/25/2021 chest radiographs. FINDINGS/IMPRESSION: Chest, two views. Improvement in previously seen left basilar atelectasis or consolidation. Stable stranding at the right lung base and blunting of the right costophrenic angle favored to represent chronic atelectasis or scarring. No definite acute pulmonary consolidation. Unchanged upper normal heart size. Postoperative changes in the right humeral head, as before. No acute osseous findings. Labs are reassuring. Though COVID positive and I suppose correspondingly elevated CRP. Given acetaminophen and fever resolves. Would be candidate for Paxlovid More more energetic and responsive to questions later. Does report feeling improved after time of observation emergency department and IV hydration. See patient discharge plan for further discussion Medical Records Medical records reviewed: Yes I reviewed the patient's medical records Lab Data Lab results reviewed: Yes I reviewed the patient's lab results Labs: Lab Results 02/17/24 Range/Units 18:16 WBC 7.79 (4.50-11.00) K/uL RBC 4.25 L (4.30-5.90) m/uL Hgb 12.5 L (13.5-17.5) gm/dL Hct 38.9 (37.0-53.0) % MCV 92 (80-100) fL MCH 29 (26-34) pg MCHC 32 (32-36) gm/dL RDW Coeff of [place] 13.3 (11.5-15.5) % Plt Count 199 (140-440) K/uL Neut % (Auto) 76.6 H (42.0-72.0) % Lymph % (Auto) 8.5 L (20-44) % [place] % (Auto) 14.4 H (0.0-11.0) % Eos % (Auto) 0.1 (0.0-7.0) % Baso % (Auto) 0.1 (0.0-3.0) % Neut # (Auto) 6.00 (1.7-7.0) K/uL Lymph # (Auto) 0.70 L (0.90-2.90) K/uL [place] # (Auto) 1.10 H (0.00-0.90) K/UL Eos # (Auto) 0.01 (0.00-0.50) K/uL Baso # (Auto) 0.01 (0.00-0.30) K/uL Abs Immat Gran (auto) 0.02 (0.00-0.30) K/uL Imm/Tot Granulo (auto) 0.3 % INR 2.01 H (0.91-1.10) Sodium 134 L (135-149) mmol/L Potassium 3.7 (3.6-5.1) mmol/L Chloride 99 (96-114) mmol/L Carbon Dioxide 26 (20-32) mmol/L Anion Gap 9 (7-15) mEq/L BUN 19 (7-30) mg/dL Creatinine 1.0 (0.5-1.5) mg/dL Estimated Creat Clear 60.83 Estimated GFR 76 ml/min Glucose 106 (60-115) mg/dL Calcium 8.6 (8.4-10.6) mg/dL C-Reactive Protein 5.8 H (0.5-1.0) mg/dL SARS-CoV-2 (PCR) POSITIVE SARS-CoV-2 A (Negative) Influenza Type A (PCR) Negative PCR FLU A (Negative) Influenza Type B (PCR) Negative PCR FLU B (Negative) RSV (PCR) Negative PCR RSV (Negative) Discharge Plan Discharge Clinical Impression: COVID Patient Disposition: Home w/ Parent or Adult Condition: Improved Additional Instructions: Stay well-hydrated. Be seen for marked weakness, intractable vomiting or diarrhea, persistent and increasing shortness of breath. Regarding medication -- While taking Paxlovid, should take half daily dosing of amlodipine or take amlodipine every other day. Resume usual dosing 3 days after done with Paxlovid Hold atorvastatin until 3 days after done with Paxlovid Check INR maybe a 5 days to a week after done with Paxlovid course Recommended to quarantine 10 days from 1st day of symptoms. Prescriptions: New Paxlovid 300 mg (150 mg x 2)-100 mg tablets,dose pack See Rx Instructions PO .COMPLEX Qty: 6 0RF Rx Instructions: take TWO 150 mg tablets of nirmatrelvir with ONE 100 mg tablet of ritonavir twice daily for 5 days No Action amlodipine 5 mg tablet 5 mg PO QDAY lisinopril-hydrochlorothiazide 20-12.5 mg tablet 2 tab PO QDAY Patient Comments: TAKE 2 TABLETS BY MOUTH EVERY DAY levothyroxine 25 mcg tablet 25 mcg PO QDAY atorvastatin 20 mg tablet 20 mg PO QPM warfarin 4 mg tablet 4 mg PO 2XW Patient Comments: 8mg 5 days a week bupropion HCl 150 mg tablet extended release 24 hr 150 mg PO DAILY Patient Comments: TAKE 1 TABLET BY MOUTH EVERY DAY mupirocin 2 % ointment 1 applic topical BID Qty: 15 0RF Follow Up/Referrals: Calixto Tsang MD [Primary Care Provider] - Stand Alone Forms: [facility] Info Instructions
--- NOTE | 2024-02-17 17:57 | CRLHL7_ITS ---
For Patients: As a result of the Cures Act, medical imaging exams and procedure reports are released immediately into your electronic medical record. You may view this report before your referring provider. If you have questions, please contact your health care provider. INDICATION: Cough and fever. COMPARISON: 05/25/2021 chest radiographs. FINDINGS/IMPRESSION: Chest, two views. Improvement in previously seen left basilar atelectasis or consolidation. Stable stranding at the right lung base and blunting of the right costophrenic angle favored to represent chronic atelectasis or scarring. No definite acute pulmonary consolidation. Unchanged upper normal heart size. Postoperative changes in the right humeral head, as before. No acute osseous findings. Dictated by Franklyn Rizo MD @ 02/17/2024 7:21:05 PM Dictated by: Franklyn Rizo MD @ 02/17/2024 19:21:30 (Electronically Signed)
[2024-02-17 18:25] LABS: Basophils Absolute Auto 0.01 K/uL (0.00-0.30); Basophils Percent Auto 0.1 % (0.0-3.0); Eosinophils Absolute Auto 0.01 K/uL (0.00-0.50); Eosinophils Percent Auto 0.1 % (0.0-7.0); Hematocrit* 38.9 % (37.0-53.0); Hemoglobin* 12.5 gm/dL (13.5-17.5); Immature Granulocytes Abs Auto 0.02 K/uL (0.00-0.30); Immature Granulocytes Pct Auto 0.3 %; Lymphocytes Percent Auto 8.5 % (20-44); Mean Corpuscular HGB Conc 32 gm/dL (32-36); Mean Corpuscular Hemoglobin 29 pg (26-34); Mean Corpuscular Volume 92 fL (80-100); Monocytes Percent Auto 14.4 % (0.0-11.0); Neutrophils Percent Auto 76.6 % (42.0-72.0); Platelet Count* 199 K/uL (140-440); RDW Coefficient of Variation % 13.3 % (11.5-15.5); Red Blood Count* 4.25 m/uL (4.30-5.90); White Blood Count* 7.79 K/uL (4.50-11.00)
[2024-02-17 18:28] LABS: Slide Review Reflex No
[2024-02-17 18:37] LABS: Chloride* 99 mmol/L (96-114); Sodium* 134 mmol/L (135-149)
[2024-02-17 18:38] LABS: Potassium* 3.7 mmol/L (3.6-5.1)
[2024-02-17 18:40] LABS: Est. Creatinine Clearance* 60.83; Estimated Glomerular Filt Rate 76 ml/min
[2024-02-17] MEDS: 0.9 % SODIUM CHLORIDE 1000 ml 1,000 ML IV (18:40)
[2024-02-17 18:41] LABS: Anion Gap 9 mEq/L (7-15); Blood Urea Nitrogen* 19 mg/dL (7-30); Calcium* 8.6 mg/dL (8.4-10.6); Carbon Dioxide* 26 mmol/L (20-32); Glucose* 106 mg/dL (60-115); INR 2.01 (0.91-1.10); Prothrombin Time 24.3 Seconds
[2024-02-17 18:44] LABS: C Reactive Protein* 5.8 mg/dL (0.5-1.0)
[2024-02-17] MEDS: ACETAMINOPHEN 325 MG TABLET 650 MG PO (18:50)
[2024-02-17 19:04] LABS: PCR FLU A Negative PCR FLU A (Negative); PCR FLU B Negative PCR FLU B (Negative); PCR RSV Negative PCR RSV (Negative); SARS PCR* POSITIVE SARS-CoV-2 (Negative)
== END 2024-02-17 19:44 | disposition home or self-care (01) ==
PROVIDERS: Emergency Provider Family Medicine; PCP Family Medicine
DX: U07.1 COVID-19 (principal); Z51.81 Encounter for therapeutic drug level monitoring; Z79.01 Long term (current) use of anticoagulants
CPT/HCPCS: 36415; 71046; 80048; 85025; 85610; 86140; 87631; 94761; 99284; A9270; J7030

== ENCOUNTER 2025-04-07 10:30 | Outpatient (RCR) | payer MEDICARE, BC, SELFPAY | END 2025-05-07 15:49 | disposition home or self-care (01) | PROVIDERS: PCP Family Medicine; Visit Provider Family Medicine | DX: M54.9 Dorsalgia, unspecified (principal); Z51.89 Encounter for other specified aftercare | CPT/HCPCS: 97110; 97112; 97161 ==